=== PATIENT | male | born 1990 | race African-American/Black ===

== ENCOUNTER 2022-12-24 14:11 | Emergency (ER) | payer SELFPAY ==
[2022-12-24] MEDS ORDERED: Ketorolac Tromethamine 30 MG/ML VIAL ONE (16:04)
== END 2022-12-24 16:30 | disposition home or self-care (01) ==
LOC: ERS 14:11
DX: S50.11XA Contusion of right forearm, initial encounter (principal); F17.200 Nicotine dependence, unspecified, uncomplicated; W01.0XXA Fall on same level from slipping, tripping and stumbling without subsequent striking against object, initial encounter
CPT/HCPCS: 96372; J1885

== ENCOUNTER 2023-01-16 09:34 | Emergency (ER) | payer SELFPAY | END 2023-01-16 11:26 | disposition home or self-care (01) | LOC: ERS 09:34 | DX: M25.531 Pain in right wrist (principal); F17.200 Nicotine dependence, unspecified, uncomplicated ==

== ENCOUNTER 2023-05-08 20:51 | Emergency (ER) | payer SELFPAY ==
[2023-05-08] MEDS ORDERED: Dexamethasone 10 MG/ML VIAL ONE (21:36)
[2023-05-08] MEDS ORDERED: Bicillin LA 1.2 MILLION UNITS/2 ML SYRINGE ONE (21:37)
[2023-05-08 22:35] LABS: SARS-CoV-2 NAA Rapid Test Not Detected (NotDetected)
== END 2023-05-08 21:57 | disposition home or self-care (01) ==
LOC: ERS 20:51
DX: J02.0 Streptococcal pharyngitis (principal); F17.210 Nicotine dependence, cigarettes, uncomplicated
CPT/HCPCS: 71045; 87081; 87430; 93005; J0561; J1100; U0002